=== PATIENT | male | born 1970 | race Hispanic/Latino ===

== ENCOUNTER 2018-03-06 13:10 | Outpatient (CLI) | payer OTHER ==
--- NOTE | 2018-03-06 15:46 | MRI ---
MRI LEFT KNEE: DATE: 03/06/18. PROVIDED CLINICAL HISTORY: Left knee pain. FINDINGS: The anterior cruciate ligament, posterior cruciate ligament, medial collateral ligament, and lateral collateral ligamentous complex demonstrate an intact MR appearance, as does the extensor mechanism. There is a complex nondisplaced tear involving the body of the medial meniscus. The lateral meniscus demonstrates no evidence for tear. There is articular cartilage loss involving the lateral trochlear facet and the median ridge and late ral facet of the patella. There is lateral tracking of the patella with edema noted within the later al infrapatellar fat. There is a small knee joint effusion. No focal concerning regional marrow or muscular signal abnormality is apparent. Ganglion cyst formation is seen adjacent to the medial gastrocnemius recess. IMPRESSION: 1. Complex nondisplaced body of medial meniscal tear. 2. Advanced patellofemoral articular chondrosis. 3. Small knee joint effusion. POS: [facility]
== END 2018-03-06 13:11 | disposition home or self-care (01) ==
LOC: BICMRI 13:10
PROVIDERS: ATTEND Family Medicine
DX: M23.92 Unspecified internal derangement of left knee (principal); S83.242A Other tear of medial meniscus, current injury, left knee, initial encounter; M22.2X2 Patellofemoral disorders, left knee; M17.12 Unilateral primary osteoarthritis, left knee

== ENCOUNTER 2018-12-07 09:38 | Outpatient (CLI) | payer OTHER ==
[2018-12-07 14:54] LABS: #Basophils 0.1 thou/uL (0.0-0.2); #Eosinphils 0.3 thou/uL (0.0-0.7); #Lymphocytes 1.9 thou/uL (1.20-3.40); #Monocytes 0.5 thou/uL (0.11-0.59); %Basophils 1.8 % (0.0-1.0); %Eosinophils 4.7 % (0.0-10.0); %Lymphocytes 32.8 % (21.0-51.0); %Monocytes 8.6 % (0.0-10.0); %Neutrophils 52.2 % (42.0-75.0); Hemoglobin 14.5 g/dL (14.0-18.0); Mean Corpuscular HGB CONC 34.5 g/dL (32.0-36.0); Mean Corpuscular Hemoglobin 32.4 pg (27.0-31.0); Mean Corpuscular Volume 94.1 fL (78.0-98.0); Mean Platelet Volume 6.9 fL (7.4-10.4); Platelet Count 275 thou/uL (130-400); Red Blood Cell (RBC) Count 4.46 mill/uL (4.70-6.10); White Blood Cell (WBC) Count 5.7 thou/uL (4.8-10.8)
[2018-12-07 15:16] LABS: Anion Gap 12 mmol/L (10-20); BUN (Urea Nitrogen) 17 mg/dL (8.9-20.6); Calc. Creatinine Clearance 0 mL/min (70-130); Calcium 9.1 mg/dL (7.8-10.44); Carbon Dioxide 25 mmol/L (22-29); Chloride 105 mmol/L (98-107); Estimated GFR-MDRD Greater than 90; Glucose 93 mg/dL (70-105); Potassium 4.2 mmol/L (3.5-5.1); Sodium 138 mmol/L (136-145)
== END 2018-12-07 09:39 | disposition home or self-care (01) ==
LOC: LABBT 09:38
PROVIDERS: ATTEND Orthopaedic Surgery
DX: Z01.812 Encounter for preprocedural laboratory examination (principal); S83.207A Unspecified tear of unspecified meniscus, current injury, left knee, initial encounter
CPT/HCPCS: 80048; 85025

== ENCOUNTER 2018-12-11 08:24 | Day surgery (SDC) | payer OTHER ==
[2018-12-07 15:25] VITALS: BMI 34.4
[2018-12-11] MEDS ORDERED: PROPOFOL 20 ML ONE (09:24)
--- NOTE | 2018-12-11 13:05 | OP ---
DATE OF PROCEDURE: 12/11/2018 PREOPERATIVE DIAGNOSIS: Medial meniscus tear, left knee. POSTOPERATIVE DIAGNOSIS: Medial and lateral meniscal tears. ANESTHESIA: General. ESTIMATED BLOOD LOSS: Minimal. SPECIMEN: None. DRAINS: None. COMPLICATIONS: None. TOURNIQUET: Not used. DESCRIPTION OF PROCEDURE: Left leg was prepped and draped in sterile fashion. Scope was placed in the lateral portal. Probe was placed in the medial portal. He had no significant arthritis. There was complex tear involving most of the posterior horn of the medial meniscus. This was debrided using basket forceps and then smoothed using a 4.0 full radius resector. I could then confirm meniscectomy by probing and making sure the meniscus was stable. He had small degenerative tear of the lateral meniscus. This was debrided with a 4.0 full radius resector. ACL was intact. Gutters were swept. Knee was irrigated and drained. Sterile dressings applied. Job ID: [id number]
[2018-12-11] MEDS ORDERED: HYDROcodone/Acetaminophen 5/325 mg Tablet ONE (13:58)
[2018-12-11] MEDS ORDERED: Bupivacaine HCl 0.5%/Epinephrine 1:200,000/PF 30 ml Vial ONE (14:53)
[2018-12-11] MEDS ORDERED: Lidocaine 2% w/Epinephrine 1:200K 20 ML VIAL ONE (14:53)
[2018-12-11] MEDS ORDERED: Ondansetron PF 4 MG/2 ML Vial ONE (14:58)
[2018-12-11] MEDS ORDERED: PROPOFOL 200 MG/20 ML VIAL ONE (14:58)
== END 2018-12-11 14:30 | disposition home or self-care (01) ==
LOC: SDC 08:24
PROVIDERS: ATTEND Orthopaedic Surgery
PROC: 0SBD4ZZ Excision of Left Knee Joint, Percutaneous Endoscopic Approach (ICD-10-PCS; principal; 2018-12-11)
DX: S83.232A Complex tear of medial meniscus, current injury, left knee, initial encounter (principal); S83.282A Other tear of lateral meniscus, current injury, left knee, initial encounter; X58.XXXA Exposure to other specified factors, initial encounter
CPT/HCPCS: J0690; J2704